=== PATIENT | male | born 1960 | race Caucasian/White ===

== ENCOUNTER 2019-01-26 12:34 | Emergency (ER) | payer BC, OTHER ==
[~2019-01-26] VITALS: Ht 175.3 cm; Wt 95.3 kg
[2019-01-26 13:00] VITALS: BP 131/82
[2019-01-26] MEDS ORDERED: LIDOCAINE 1%/EPI 1:100,000 20 ML VIAL. INJ ONE (13:30)
--- NOTE | 2019-01-26 13:57 | RAD ---
CT HEAD AND CERVICAL SPINE WO History: History of trauma. Right hip pain. Neck pain. Comparison: None. Technique: Noncontrast CT imaging was performed of the head and cervical spine. Coronal and sagittal reconstructions were performed. Exposure: One or more of the following individualized dose reduction techniques were utilized for this examination: 1. Automated exposure control 2. Adjustment of the mA and/or kV according to patient size 3. Use of iterative reconstruction technique. Findings: Head CT: Right superior lateral scalp soft tissue injury and laceration. No intracranial hemorrhage. No mass effect. No hydrocephalus. Extra-axial spaces are unremarkable. Imaged orbits are unremarkable. Mild frontal sinus and frontoethmoidal recess mucosal thickening. Mastoid air cells are clear. Cervical spine CT: Slight reversal the normal cervical lordosis. Minimal retrolisthesis C6 on C7. Moderate multilevel cervical spondylosis is prominent C5-C6 and C6-C7. Grade 1 anterolisthesis C3 on C4. Multilevel facet arthropathy most prominent C3-C4. Soft tissues unremarkable. Impression: 1. No acute intracranial abnormality. 2. Right lateral scalp soft tissue injury. 3. No acute fracture or subluxation of the cervical spine. 4. Moderate multilevel cervical spondylosis. Electronically signed by: Trev Islas DO (01/26/2019 1:54 PM) [facility]
[2019-01-26] MEDS ORDERED: DIPHTH,PERTUSS(ACELL),TET TOX 0.5 ML DISP.SYRIN. VAX IM ONE (14:00)
--- NOTE | 2019-01-26 14:37 | PHYS DOC ---
Past Medical History Past Medical History: Diabetes-Type II, GERD, High Cholesterol, Hypertension Past Surgical History: No Surgical History Alcohol Use: Heavy Drug Use: None Adult General Chief Complaint Chief Complaint: HEAD INJURY/TRAUMA HPI HPI Patient is a 58 year old male presented to ER today for evaluation of head injury. Patient said he was trying to cut a tree, his friend was on the tree cutting down tree limb, it fell down, hit him on the head. He denies any loss of consciousness. Patient complains of headache and neck pain. No weakness or numbness in upper extremity. Patient is not up-to-date on his tetanus vaccination. Review of Systems Review of Systems Constitutional: Denies fever or chills [] Eyes: Denies change in visual acuity, redness, or eye pain [] HENT: Denies nasal congestion or sore throat [] Respiratory: Denies cough or shortness of breath [] Cardiovascular: No additional information not addressed in HPI [] GI: Denies abdominal pain, nausea, vomiting, bloody stools or diarrhea [] : Denies dysuria or hematuria [] Musculoskeletal: Denies back pain or joint pain [] Integument: Denies rash or skin lesions [] Neurologic: Positive for neck pain and headache, NO focal weakness or sensory changes [] Endocrine: Denies polyuria or polydipsia [] All other systems were reviewed and found to be within normal limits, except as documented in this note. Current Medications Current Medications Current Medications Medications (Trade) Dose Ordered Sig/Basilia Start Time Stop Time Status Last Admin Dose Admin Diphtheria/ Tetanus/Acell Pertussis (Boostrix) 0.5 ml ONCE ONCE 01/26/19 14:00 01/26/19 14:02 DC 01/26/19 14:32 0.5 ML Lidocaine/ Epinephrine (LIDOCAINE 1%-EPI 1:100,000 Multi-Dose) 20 ml 1X ONCE 01/26/19 13:30 01/26/19 13:31 DC 01/26/19 14:13 20 ML Allergies Allergies Allergies Coded Allergies Type Severity Reaction Last Updated Verified Penicillins Allergy Intermediate 01/26/19 Yes Physical Exam Physical Exam Constitutional: Well developed, well nourished, no acute distress, non-toxic a ppearance. [] HENT: 8 CM LACERATION ON THE RIGHT PARIETAL AREA, bilateral external ears normal, oropharynx moist, no oral exudates, nose normal. [] Eyes: PERRLA, EOMI, conjunctiva normal, no discharge. [] Neck: Normal range of motion, no tenderness, supple, no stridor. [] Cardiovascular:Heart rate regular rhythm, no murmur [] Lungs & Thorax: Bilateral breath sounds clear to auscultation [] Abdomen: Bowel sounds normal, soft, no tenderness, no masses, no pulsatile masses. [] Skin: Warm, dry, no erythema, no rash. [] Back: No tenderness, no CVA tenderness. [] Extremities: No tenderness, no cyanosis, no clubbing, ROM intact, no edema. [] Neurologic: Alert and oriented X 3, normal motor function, normal sensory function, no focal deficits noted. [] Psychologic: Affect normal, judgement normal, mood normal. [] Current Patient Data Vital Signs Vital Signs Date Time Temp Pulse Resp B/P (MAP) Pulse Ox O2 Delivery O2 Flow Rate FiO2 01/26/19 13:00 98.0 95 16 131/82 (98) 97 Room Air 98.0 EKG EKG [] Radiology/Procedures Radiology/Procedures [][facility] [address] [place] [address] IMAGING REPORT Signed PATIENT: ISABELL MCCRARY ACCOUNT: [id number] : 1960 LOCATION: ER AGE: 58 SEX: M EXAM STATUS: REG ER ORD. PHYSICIAN: CHECO JOHNSTON DO REASON: a tree branch fell down, knocked him on right side head, headache, neck symone PROCEDURE: CT HEAD AND CERVICAL SPINE WO CT HEAD AND CERVICAL SPINE WO History: History of trauma. Right hip pain. Neck pain. Comparison: None. Technique: Noncontrast CT imaging was performed of the head and cervical spine. Coronal and sagittal reconstructions were performed. Exposure: One or more of the following individualized dose reduction techniques were utilized for this examination: 1. Automated exposure control 2. Adjustment of the mA and/or kV according to patient size 3. Use of iterative reconstruction technique. Findings: Head CT: Right superior lateral scalp soft tissue injury and laceration. No intracranial hemorrhage. No mass effect. No hydrocephalus. Extra-axial spaces are unremarkable. Imaged orbits are unremarkable. Mild frontal sinus and frontoethmoidal recess mucosal thickening. Mastoid air cells are clear. Cervical spine CT: Slight reversal the normal cervical lordosis. Minimal retrolisthesis C6 on C7. Moderate multilevel cervical spondylosis is prominent C5-C6 and C6-C7. Grade 1 anterolisthesis C3 on C4. Multilevel facet arthropathy most prominent C3-C4. Soft tissues unremarkable. Impression: 1. No acute intracranial abnormality. 2. Right lateral scalp soft tissue injury. 3. No acute fracture or subluxation of the cervical spine. 4. Moderate multilevel cervical spondylosis. Electronically signed by: Trev Islas DO (01/26/2019 1:54 PM) [facility] DICTATED and SIGNED BY: TREV ISLAS DO DATE: 01/26/19 1354 Indication: SCALP LACERATION Procedure: The patient was placed in the appropriate position and anesthesia around the WOUND WITH LIDOCAINE 1 % WITH EPI, 20 ML. The area was then CLEANED. The laceration was CLOSED WITH 14 HECTOR. The wound area was then dressed with GAUZE. Total repaired wound length: 8 CM Other Items: [OTHER ITEMS] The patient tolerated the procedure [TOLERATED]. Complications: [NO COMPLICATIONS]. Course & Med Decision Making Course & Med Decision Making Pertinent Labs and Imaging studies reviewed. (See chart for details) [] Dragon Disclaimer Dragon Disclaimer This electronic medical record was generated, in whole or in part, using a voice recognition dictation system. Departure Departure Impression: Primary Impression: Head injury due to trauma Additional Impression: Scalp laceration Disposition: 01 HOME, SELF-CARE Condition: STABLE Referrals: LEAH ANDRADE Jr, MD (PCP) FOLLOW UP WITH YOUR DOCTOR IN 7 DAYS FOR HECTOR REMOVAL. Patient Instructions: Head Injury, Adult, Staple Wound Closure, [id number], VIS, Tetanus, Diphtheria (Td); Tetanus, Diphtheria, Pertussis (Tdap) - CDC Problem Qualifiers CHECO JOHNSTON DO Jan 26, 2019 14:37
== END 2019-01-26 14:44 | disposition home or self-care (01) ==
LOC: ER 12:34
DX: S01.01XA Laceration without foreign body of scalp, initial encounter (principal); E78.00 Pure hypercholesterolemia, unspecified; K21.9 Gastro-esophageal reflux disease without esophagitis; E11.9 Type 2 diabetes mellitus without complications; I10 Essential (primary) hypertension; M47.812 Spondylosis without myelopathy or radiculopathy, cervical region; F10.20 Alcohol dependence, uncomplicated; Y90.9 Presence of alcohol in blood, level not specified; Z88.0 Allergy status to penicillin; W20.8XXA Other cause of strike by thrown, projected or falling object, initial encounter; Y93.89 Activity, other specified; Y92.89 Other specified places as the place of occurrence of the external cause; Y99.8 Other external cause status
CPT/HCPCS: 12004; 70450; 72125; 90471; 90715; 99284; J3490; 96372